=== PATIENT | male | born 1980 | race African-American/Black ===

== ENCOUNTER 2023-09-30 04:53 | Emergency (ER) | payer OTHER ==
[2023-09-30 04:57] VITALS: BP 123/72; PULSE 88; RESP 20; TEMP 99.3; BMI 40.9
[2023-09-30] MEDS ORDERED: ONDANSETRON *ODT* 4 MG TABLET ONE (05:49)
[2023-09-30] MEDS: ONDANSETRON *ODT* 4 MG TABLET SL ONE (05:53)
== END 2023-09-30 05:55 | disposition home or self-care (01) ==
LOC: JER 04:53
DX: R05.9 Cough, unspecified (principal)
CPT/HCPCS: 0241U-QW; 71046-TC-FY; 87651; 99283-25; Q0162